=== PATIENT | male | born 1985 | race Asian ===

== ENCOUNTER 2021-07-10 20:06 | Emergency (ER) | payer OTHER | END 2021-07-10 20:21 | disposition home or self-care (01) | LOC: ERS 20:06 | DX: S00.81XA Abrasion of other part of head, initial encounter (principal); Y04.8XXA Assault by other bodily force, initial encounter | CPT/HCPCS: 99283 ==

== ENCOUNTER 2022-02-16 08:17 | Outpatient (CLI) | payer BC ==
[2022-02-16 09:51] LABS: #Basophils 0.1 10x3/uL (0.0-0.2); #Eosinphils 0.3 10x3/uL (0.0-0.5); #Monocytes 0.5 10x3/uL (0.0-1.1); #Neutrophils 4.7 10x3/uL (1.5-8.4); %Eosinophils 3.9 % (0.0-6.0); %Lymphocytes 21.6 % (18.0-47.0); %Monocytes 7.2 % (0.0-10.0); %Neutrophils 65.5 % (40.0-75.0); Hemoglobin 15.7 g/dL (13.5-17.5); Mean Corpuscular HGB CONC 35.1 g/dL (32.0-36.0); Mean Corpuscular Hemoglobin 30.3 pg (27.0-33.0); Mean Corpuscular Volume 86.1 fl (81.2-95.1); Mean Platelet Volume 10.7 fl (7.4-10.4); Platelet Count 263 10x3/uL (150-450); RBC Distribution Width 12.2 % (11.5-14.5); Red Blood Cell (RBC) Count 5.19 10x6/uL (4.32-5.72); White Blood Cell (WBC) Count 7.2 10x3/uL (3.5-10.5)
== END 2022-02-16 08:18 | disposition home or self-care (01) ==
LOC: LABBT 08:17
PROVIDERS: ATTEND Surgery
DX: K60.1 Chronic anal fissure (principal)
CPT/HCPCS: 85025

== ENCOUNTER 2022-02-18 05:53 | Day surgery (SDC) | payer BC ==
[2022-02-16 15:41] VITALS: BMI 25.8
[2022-02-18] MEDS ORDERED: Fentanyl 250 MCG/5 ML VIAL ONE (07:11)
[2022-02-18] MEDS ORDERED: SUGAMMADEX SODIUM 200 MG/2 ML VIAL ONE (07:11)
[2022-02-18] MEDS ORDERED: Bacitracin Zinc Ointment 30 gm TUBE ONE (07:22)
[2022-02-18] MEDS ORDERED: Bupivacaine/Epinephrine 0.25% 30 ML VIAL ONE (07:22)
[2022-02-18] MEDS ORDERED: Lidocaine 2% PF 5 ML VIAL ONE (07:22)
[2022-02-18] MEDS ORDERED: cefOXitin 2 GM VIAL ONE (07:26)
[2022-02-18] MEDS ORDERED: Sodium Chloride 0.9% 100 ML ONE (07:26)
[2022-02-18] MEDS ORDERED: PROPOFOL 200 MG/20 ML VIAL ONE (07:45)
[2022-02-18] MEDS ORDERED: Dexamethasone 20 MG/5 ML VIAL ONE (07:45)
[2022-02-18] MEDS ORDERED: Ondansetron PF 4 MG/2 ML Vial ONE ×2 (07:45)
[2022-02-18] MEDS ORDERED: Lidocaine 1% PF 5 ML VIAL ONE (07:45)
[2022-02-18] MEDS ORDERED: Fentanyl 100 MCG/2 ML VIAL ONE ×2 (08:08→08:46)
== END 2022-02-18 09:30 | disposition home or self-care (01) ==
LOC: SDC 05:53
PROVIDERS: ATTEND Surgery
PROC: 06BY3ZC Excision of Hemorrhoidal Plexus, Percutaneous Approach (ICD-10-PCS; principal; 2022-02-18)
DX: K64.3 Fourth degree hemorrhoids (principal); K60.1 Chronic anal fissure
CPT/HCPCS: 88304; J0694; J1100; J2001; J2405; J2704; J3010; J3490